=== PATIENT | female | born 1975 | race Caucasian/White ===

== ENCOUNTER → 2018-08-05 | Outpatient (CLI) | payer OTHER ==
[~2018-08-05] MED LIST: ACET500 PO; ALBU90OI INH; ALBU90OI6; ALBU90OI6 INH; ALPR.5; ALPR1; AMIT25 PO; AMIT50; AMIT50 PO; AMIT75; AMIT75 PO; AMOX500 PO; AZIT500 PO; BUSP5 PO; CEPH500; CEPH500 PO; CIME300 PO; CIME400 PO; CIPR250 PO; CIPR500 PO; CITA20; CITA20 PO; CLIN150 PO; CLIN300 PO; CLON.5; CLON.5 PO; CLON1; CLON1 PO; CODACE30; CODACE30 PO; CODACE60 PO; CODGUAPSEE PO; CYCL10 PO; Catapres0.1 MG PO; DOXY100 PO; ESTNOR PO; ESTR.1TPBW TOP; FAMO20 PO; FAMO40 PO; FLUT.05NI; FLUT220OIA IH; HYDACE10B; HYDACE25S PR; HYDACE5 PO; HYDACE7.5; HYDACE7.5 PO; IBUP600 PO; IBUP800 PO; KETO10 PO; LACT10SY PO; LORA1 PO; MECL25 PO; METO10 PO; METO25ER PO; METR500 PO; NAPR250; NAPR500 PO; NAPR550 PO; NITR100CA PO; OMEP20ER PO; ONDA4 PO; OXYACE5T PO; PENVK500 PO; PHENA100 PO; PHENA200 PO; POLY17UD PO; PRED20 PO; PROC5 PO; PROG100 PO; PROM25 PO; PROM25S PR; PROP10 PO; PROP20; RANI150 PO; RXCLIN PO; RXCODACET PO; RXCYCL10 PO; RXHYDACE PO; RXNAPNA550 PO; RXONDA4ODT MM; RXOXYACE PO; RXPROM25 PO; RXPROM25S PR; RXSULTRIDS PO; RXTRAM50 PO; SILSUL1TC TOP; SULTRIDS PO; TRAM50; TRAM50 PO; TRAZ100 PO; TRAZ50 PO; TRIM PO; Ultram50 MG PO; ZOLP10 PO; [UNRECOGNIZED DRUG - OTHER]
== END ==
LOC: LAB 13:22 → LAB SHORT 13:22
DX: R30.0 Dysuria (principal)
CPT/HCPCS: 87077; 87086; 87186

== ENCOUNTER 2018-12-30 07:41 | Day surgery (SDC) | payer OTHER ==
[~2018-12-30] VITALS: Ht 157.5 cm; Wt 64.4 kg
[~2018-12-30 07:41] MED LIST changes: +Flovent Disku100 MCG IH; +IBU800 MG PO; +OMEPRAZOLE MAGN20 MG PO; +SUBOXONE 8 MG-1 EACH SL; +TOPI100 PO; +ZOLP5 PO
--- NOTE | 2018-12-30 08:35 | NUR ---
Ambulatory in Day Surgery History, Chart, Medications and Allergies reviewed before start of procedure.Lungs clear T/O to Auscultation. Patient confirms NPO status and agrees with scheduled surgery. Patient States Post-Procedure ride home has been arranged.
--- NOTE | 2018-12-30 09:34 | NUR ---
12/30/18 0934 Edilson Steelne PATIENT DETERMINED TO BE ASA APPROPRIATE FOR PROPOFOL SEDATION PRIOR TO START OF PROCEDURE BY DR. ANGULO. 3-LEAD EKG REVIEWED WITH PHYSICIAN PRIOR TO START OF PROCEDURE. History, Chart, Medications and Allergies reviewed before start of procedure. MONITOR INTACT WITH CONTINUOUS PULSE OXIMETRY AND INTERMITTENT BP. O2 VIA N/C INTACT THROUGHOUT SEDATION/PROCEDURE, 4 L NC. Bite Block Placed. HURRICAINE SPRAY TO OROPHARYX IMMEDIATELY PREPROCEDURE.
--- NOTE | 2018-12-30 10:26 | NUR ---
Patient up to Ambulate independently. Gait steady. Discharge instructions reviewed with patient. Patient verbalizes understanding. Copy given to patient to take home. Patient States Post-Procedure ride home has been arranged. Discharged via wheelchair to private car for ride home.
== END 2018-12-30 23:04 | disposition home or self-care (01) ==
LOC: ORSCMMR 07:41 → ORD 09:00 → ORSCMMR 23:04
PROVIDERS: Internal Medicine Gastroenterology
PROC: 0DB98ZX Excision of Duodenum, Via Natural or Artificial Opening Endoscopic, Diagnostic (ICD-10-PCS; principal; 2018-12-30 09:00)
PROC: 0DB68ZX Excision of Stomach, Via Natural or Artificial Opening Endoscopic, Diagnostic (ICD-10-PCS; principal; 2018-12-30 09:00)
DX: R10.13 Epigastric pain (principal); Z79.899 Other long term (current) drug therapy
CPT/HCPCS: 88305; 88342; J7120

== ENCOUNTER 2019-02-26 00:38 | Day surgery (SDC) | payer OTHER ==
[~2019-02-26 00:38] MED LIST changes: +BUPRENORPHINE HC8 MG SL; +ONDA4ODT MM
[2019-02-26] MEDS ORDERED: Oyster Shell C500 MG PO (15:08)
[2019-02-26] MEDS ORDERED: ONDA8 PO (15:09)
[2019-02-26] MEDS ORDERED: Nicoderm Cq1 EACH TOP (15:11)
[2019-02-26] MEDS ORDERED: Loratadine10 MG PO (15:17)
[2019-02-26] MEDS ORDERED: Omeprazole20 M1 PO (15:19)
[2019-02-26] MEDS ORDERED: FAMO40 PO (15:25)
[2019-02-26] MEDS ORDERED: Omega-31000 MG PO (15:32)
[2019-02-26] MEDS ORDERED: LORA.5 PO (15:33)
[2019-02-26] MEDS ORDERED: IBUP800 PO (15:33)
[2019-02-26] MEDS ORDERED: Hair, Skin & N1 EACH PO (15:34)
== END 2019-02-26 12:15 | disposition home or self-care (01) ==
LOC: ATC 00:38
DX: C82.08 Follicular lymphoma grade I, lymph nodes of multiple sites (principal); I10 Essential (primary) hypertension; K21.9 Gastro-esophageal reflux disease without esophagitis; F41.9 Anxiety disorder, unspecified; F32.9 Major depressive disorder, single episode, unspecified; Z87.891 Personal history of nicotine dependence; Z79.899 Other long term (current) drug therapy; Z88.8 Allergy status to other drugs, medicaments and biological substances; Z88.2 Allergy status to sulfonamides; Z88.5 Allergy status to narcotic agent
CPT/HCPCS: 36569; C1751

== ENCOUNTER 2019-03-05 00:22 | Day surgery (SDC) | payer OTHER ==
[~2019-03-05 00:22] MED LIST changes: +Hair, Skin & N1 EACH PO; +LORA.5 PO; +Loratadine10 MG PO; +Nicoderm Cq1 EACH TOP; +ONDA8 PO; +Omega-31000 MG PO; +Omeprazole20 M1 PO; +Oyster Shell C500 MG PO
== END 2019-03-05 11:20 | disposition home or self-care (01) ==
LOC: ATC 00:22
DX: C82.08 Follicular lymphoma grade I, lymph nodes of multiple sites (principal); K21.9 Gastro-esophageal reflux disease without esophagitis; I10 Essential (primary) hypertension; Z87.891 Personal history of nicotine dependence; Z88.2 Allergy status to sulfonamides; Z88.5 Allergy status to narcotic agent; Z88.8 Allergy status to other drugs, medicaments and biological substances
CPT/HCPCS: 99211

== ENCOUNTER 2019-03-19 13:12 | Day surgery (SDC) | payer OTHER | END 2019-03-19 14:28 | disposition home or self-care (01) | LOC: ATC 13:12 | DX: C82.08 Follicular lymphoma grade I, lymph nodes of multiple sites (principal); I10 Essential (primary) hypertension; K21.9 Gastro-esophageal reflux disease without esophagitis; Z88.8 Allergy status to other drugs, medicaments and biological substances; Z88.5 Allergy status to narcotic agent | CPT/HCPCS: 99211 ==

== ENCOUNTER 2019-03-26 00:27 | Day surgery (SDC) | payer OTHER | END 2019-03-26 14:59 | disposition home or self-care (01) | LOC: ATC 00:27 | DX: C82.08 Follicular lymphoma grade I, lymph nodes of multiple sites (principal); I10 Essential (primary) hypertension; F41.9 Anxiety disorder, unspecified; F32.9 Major depressive disorder, single episode, unspecified; K21.9 Gastro-esophageal reflux disease without esophagitis; Z87.891 Personal history of nicotine dependence; Z88.8 Allergy status to other drugs, medicaments and biological substances; Z79.899 Other long term (current) drug therapy | CPT/HCPCS: 99211 ==

== ENCOUNTER 2019-04-02 15:55 | Day surgery (SDC) | payer OTHER | END 2019-04-02 16:22 | disposition home or self-care (01) | LOC: ATC 15:55 | DX: Z45.2 Encounter for adjustment and management of vascular access device (principal); C82.08 Follicular lymphoma grade I, lymph nodes of multiple sites; I10 Essential (primary) hypertension; G47.00 Insomnia, unspecified; K21.9 Gastro-esophageal reflux disease without esophagitis; F41.9 Anxiety disorder, unspecified; F32.9 Major depressive disorder, single episode, unspecified; Z79.899 Other long term (current) drug therapy; Z88.8 Allergy status to other drugs, medicaments and biological substances; Z88.5 Allergy status to narcotic agent; Z88.2 Allergy status to sulfonamides | CPT/HCPCS: 99211 ==

== ENCOUNTER 2019-04-09 00:19 | Day surgery (SDC) | payer OTHER | END 2019-04-09 14:30 | disposition home or self-care (01) | LOC: ATC 00:19 | DX: C82.08 Follicular lymphoma grade I, lymph nodes of multiple sites (principal); I10 Essential (primary) hypertension; K21.9 Gastro-esophageal reflux disease without esophagitis; F32.9 Major depressive disorder, single episode, unspecified; F41.9 Anxiety disorder, unspecified; Z79.899 Other long term (current) drug therapy; Z88.8 Allergy status to other drugs, medicaments and biological substances | CPT/HCPCS: 99211 ==

== ENCOUNTER 2019-04-16 00:11 | Day surgery (SDC) | payer OTHER | END 2019-04-16 14:53 | disposition home or self-care (01) | LOC: ATC 00:11 | DX: Z45.2 Encounter for adjustment and management of vascular access device (principal); C82.08 Follicular lymphoma grade I, lymph nodes of multiple sites | CPT/HCPCS: 99211 ==

== ENCOUNTER 2019-05-07 02:56 | Emergency (ER) | payer OTHER ==
[~2019-05-07] VITALS: Ht 157.5 cm; Wt 59.0 kg
[2019-05-07] MEDS ORDERED: NYSTRITC TOP (03:26)
[2019-05-07] MEDS ORDERED: TOPIRAMATE ER200 MG PO (03:51)
== END 2019-05-07 03:59 | disposition home or self-care (01) ==
LOC: ER 02:56
DX: B37.3 Candidiasis of vulva and vagina (principal); F41.9 Anxiety disorder, unspecified; I10 Essential (primary) hypertension; Z87.891 Personal history of nicotine dependence; Z88.2 Allergy status to sulfonamides; Z88.6 Allergy status to analgesic agent; Z88.8 Allergy status to other drugs, medicaments and biological substances
CPT/HCPCS: 99283

== ENCOUNTER → 2020-03-18 | Outpatient (CLI) | payer OTHER ==
[~2020-03-18] MED LIST changes: +NYSTRITC TOP; +TOPIRAMATE ER200 MG PO
[2020-03-19 10:14] LABS: Candida species (DNA Probe) Negative (NEGATIVE); G. vaginalis (DNA Probe) Positive (NEGATIVE); T. vaginalis (DNA Probe) Negative (NEGATIVE)
[2020-03-23 14:09] LABS: HPV 16 Negative (Negative); HPV 18 Negative (Negative); HPV OTHER HR TYPES Negative (Negative)
== END ==
LOC: LAB 18:18 → LAB SHORT 18:18
PROVIDERS: Nurse Practitioner Family
DX: Z12.4 Encounter for screening for malignant neoplasm of cervix (principal); L29.8 Other pruritus
CPT/HCPCS: 87480; 87510; 87660

== ENCOUNTER → 2020-05-28 | Outpatient (CLI) | payer OTHER | LOC: LAB SHORT 09:29 → LAB SRC 09:29 | DX: R35.0 Frequency of micturition (principal) | CPT/HCPCS: 87086 ==

== ENCOUNTER → 2020-06-26 | Outpatient (CLI) | payer OTHER | END | disposition home or self-care (01) | LOC: LAB SHORT 16:30 → LAB EV 16:30 | DX: R10.32 Left lower quadrant pain (principal) | CPT/HCPCS: 83690 ==

== ENCOUNTER 2020-12-11 21:46 | Emergency (ER) | payer OTHER ==
[~2020-12-11] VITALS: Ht 157.5 cm; Wt 69.4 kg
[2020-12-11 22:29] LABS: BASOPHILS ABSOLUTE AUTO 0.03 K/mm3 (0.00-0.23); BASOPHILS PERCENT AUTO 0 % (0-2); EOSINOPHILS ABSOLUTE AUTO 0.21 K/mm3 (0.00-0.68); EOSINOPHILS PERCENT AUTO 2 % (0-6); Hematocrit 40.2 % (33.0-51.0); Hemoglobin 13.4 g/dL (11.5-16.0); IMMATURE GRAN ABSOLUTE AUTO 0.02 K/mm3 (0.00-0.10); IMMATURE GRAN PERCENT AUTO 0 % (0-1); LYMPHOCYTES ABSOLUTE AUTO 1.79 K/mm3 (0.84-5.20); LYMPHOCYTES PERCENT AUTO 18 % (21-46); MONOCYTES ABSOLUTE AUTO 0.81 K/mm3 (0.16-1.47); MONOCYTES PERCENT AUTO 8 % (4-13); Mean Corpuscular HGB 29.8 pg (26.0-34.0); Mean Corpuscular HGB Conc 33.3 g/dL (31.5-36.5); Mean Corpuscular Volume 90 fL (80-100); Mean Platelet Volume 9.2 fL (9.1-12.4); NEUTROPHILS ABSOLUTE AUTO 6.95 K/mm3 (1.96-9.15); NEUTROPHILS PERCENT AUTO 71 % (41-73); Platelet Count 315 K/mm3 (150-400); RDW Standard Deviation 39.5 fL (35.1-46.3); Red Blood Cell Count 4.49 M/mm3 (3.80-5.20); White Blood Cell Count 9.81 K/mm3 (4.00-11.30)
[2020-12-11 22:55] LABS: Alanine Aminotransfer (ALT/SGP 206 U/L (12-78); Albumin, Blood 3.4 g/dL (3.4-5.0); Albumin/Globulin Ratio 0.9 (0.8-1.8); Alk Phos 276 U/L (50-136); Anion Gap 8 mmol/L (6-16); Aspartate Aminotrans (AST/SGOT 123 U/L (12-37); Bilirubin, Total 0.9 mg/dL (0.1-1.0); Blood Urea Nitrogen 14 mg/dL (8-24); CO2, Blood 26 mmol/L (21-32); Chloride, Blood 107 mmol/L (98-108); Creatinine, Blood 0.67 mg/dL (0.40-1.00); Globulin, Blood 3.7 g/dL (2.2-4.0); Glomerular Filtration Rate >60 (60-); Glucose, Blood 112 mg/dL (70-99); Potassium, Blood 3.4 mmol/L (3.5-5.5); Sodium, Blood 141 mmol/L (136-145); Total Protein, Blood 7.1 g/dL (6.4-8.2); Troponin I <0.015 ng/mL (0.000-0.040)
== END 2020-12-12 04:30 | disposition left against medical advice (07) ==
LOC: ER 21:46
PROVIDERS: Physician Assistant
DX: R07.9 Chest pain, unspecified (principal); Z53.21 Procedure and treatment not carried out due to patient leaving prior to being seen by health care provider
CPT/HCPCS: 71046; 80053; 84484; 85025; 93005; 93010; 99283-25

== ENCOUNTER 2021-09-10 17:38 | Emergency (ER) | payer OTHER ==
[~2021-09-10] VITALS: Ht 157.5 cm; Wt 63.5 kg
== END 2021-09-10 20:17 | disposition home or self-care (01) ==
LOC: ER 17:38
DX: F15.23 Other stimulant dependence with withdrawal (principal); G43.909 Migraine, unspecified, not intractable, without status migrainosus; I10 Essential (primary) hypertension; F17.210 Nicotine dependence, cigarettes, uncomplicated; Z88.2 Allergy status to sulfonamides; Z88.5 Allergy status to narcotic agent; Z88.8 Allergy status to other drugs, medicaments and biological substances; Z79.899 Other long term (current) drug therapy
CPT/HCPCS: 99283; A9270

== ENCOUNTER 2021-09-11 09:46 | Emergency (ER) | payer OTHER ==
[~2021-09-11] VITALS: Ht 157.5 cm; Wt 63.5 kg
== END 2021-09-11 10:45 | disposition home or self-care (01) ==
LOC: ER 09:46
DX: Z76.0 Encounter for issue of repeat prescription (principal); F17.210 Nicotine dependence, cigarettes, uncomplicated; I10 Essential (primary) hypertension; Z88.2 Allergy status to sulfonamides; Z88.8 Allergy status to other drugs, medicaments and biological substances; Z79.899 Other long term (current) drug therapy
CPT/HCPCS: 99281; A9270

== ENCOUNTER 2021-09-11 18:42 | Emergency (ER) | payer OTHER ==
[~2021-09-11] VITALS: Ht 157.5 cm; Wt 63.5 kg
== END 2021-09-11 19:10 | disposition home or self-care (01) ==
LOC: ER 18:42
DX: F11.20 Opioid dependence, uncomplicated (principal); I10 Essential (primary) hypertension; F17.210 Nicotine dependence, cigarettes, uncomplicated; Z79.899 Other long term (current) drug therapy; Z88.2 Allergy status to sulfonamides; Z88.5 Allergy status to narcotic agent; Z88.8 Allergy status to other drugs, medicaments and biological substances
CPT/HCPCS: 99281; A9270

== ENCOUNTER 2021-09-12 13:16 | Emergency (ER) | payer OTHER ==
[~2021-09-12] VITALS: Ht 157.5 cm; Wt 63.5 kg
== END 2021-09-12 14:10 | disposition home or self-care (01) ==
LOC: ER 13:16
DX: Z76.0 Encounter for issue of repeat prescription (principal); I10 Essential (primary) hypertension; G43.909 Migraine, unspecified, not intractable, without status migrainosus; F17.210 Nicotine dependence, cigarettes, uncomplicated; Z88.5 Allergy status to narcotic agent; Z88.2 Allergy status to sulfonamides; Z88.8 Allergy status to other drugs, medicaments and biological substances; Z79.899 Other long term (current) drug therapy
CPT/HCPCS: 99283; A9270

== ENCOUNTER 2021-09-12 20:41 | Emergency (ER) | payer OTHER ==
[~2021-09-12] VITALS: Ht 157.5 cm; Wt 63.5 kg
== END 2021-09-12 21:12 | disposition home or self-care (01) ==
LOC: ER 20:41
DX: Z76.0 Encounter for issue of repeat prescription (principal); Z88.2 Allergy status to sulfonamides; Z88.5 Allergy status to narcotic agent; Z79.899 Other long term (current) drug therapy; I10 Essential (primary) hypertension; G43.909 Migraine, unspecified, not intractable, without status migrainosus; Z87.891 Personal history of nicotine dependence
CPT/HCPCS: 99283; A9270

== ENCOUNTER 2021-09-13 12:42 | Emergency (ER) | payer OTHER ==
[~2021-09-13] VITALS: Ht 157.5 cm; Wt 63.5 kg
== END 2021-09-13 13:37 | disposition home or self-care (01) ==
LOC: ER 12:42
DX: Z76.0 Encounter for issue of repeat prescription (principal); I10 Essential (primary) hypertension; G43.909 Migraine, unspecified, not intractable, without status migrainosus; F17.210 Nicotine dependence, cigarettes, uncomplicated; Z88.5 Allergy status to narcotic agent; Z88.2 Allergy status to sulfonamides; Z88.8 Allergy status to other drugs, medicaments and biological substances; Z79.899 Other long term (current) drug therapy
CPT/HCPCS: 99281; A9270

== ENCOUNTER 2021-09-13 21:14 | Emergency (ER) | payer OTHER ==
[~2021-09-13] VITALS: Ht 157.5 cm; Wt 63.5 kg
== END 2021-09-13 23:21 | disposition home or self-care (01) ==
LOC: ER 21:14
DX: Z76.0 Encounter for issue of repeat prescription (principal); G43.909 Migraine, unspecified, not intractable, without status migrainosus; I10 Essential (primary) hypertension; F17.210 Nicotine dependence, cigarettes, uncomplicated; Z88.5 Allergy status to narcotic agent; Z88.2 Allergy status to sulfonamides; Z88.8 Allergy status to other drugs, medicaments and biological substances; Z79.899 Other long term (current) drug therapy
CPT/HCPCS: 99281; A9270

== ENCOUNTER 2022-09-30 08:50 | Emergency (ER) | payer OTHER ==
[~2022-09-30] VITALS: Ht 162.6 cm; Wt 65.8 kg
== END 2022-09-30 09:47 | disposition home or self-care (01) ==
LOC: ER 08:50
DX: S80.02XA Contusion of left knee, initial encounter (principal); W01.0XXA Fall on same level from slipping, tripping and stumbling without subsequent striking against object, initial encounter; I10 Essential (primary) hypertension; F17.210 Nicotine dependence, cigarettes, uncomplicated; Z88.5 Allergy status to narcotic agent; Z88.2 Allergy status to sulfonamides; Z88.8 Allergy status to other drugs, medicaments and biological substances; Z79.899 Other long term (current) drug therapy
CPT/HCPCS: 73562-LT; A9270

== ENCOUNTER → 2022-12-28 | Outpatient (CLI) | payer OTHER | END | disposition home or self-care (01) | LOC: LAB SHORT 08:30 → LAB 08:30 | DX: F11.10 Opioid abuse, uncomplicated (principal); F15.10 Other stimulant abuse, uncomplicated | CPT/HCPCS: G0480 ==

== ENCOUNTER → 2023-09-18 | Outpatient (CLI) | payer OTHER | END | disposition home or self-care (01) | LOC: LAB 17:12 → LAB SHORT 17:12 | DX: R10.9 Unspecified abdominal pain (principal) | CPT/HCPCS: 87077; 87086; 87186 ==

== ENCOUNTER 2024-07-29 21:11 | Emergency (ER) | payer OTHER ==
[~2024-07-29] VITALS: Ht 157.5 cm; Wt 62.6 kg
[2024-07-29 21:49] LABS: BASOPHILS ABSOLUTE AUTO 0.03 K/mm3 (0.00-0.23); BASOPHILS PERCENT AUTO 0 % (0-2); EOSINOPHILS ABSOLUTE AUTO 0.04 K/mm3 (0.00-0.68); EOSINOPHILS PERCENT AUTO 0 % (0-6); Hematocrit 41.3 % (33.0-51.0); Hemoglobin 13.8 g/dL (11.5-16.0); IMMATURE GRAN ABSOLUTE AUTO 0.05 K/mm3 (0.00-0.10); IMMATURE GRAN PERCENT AUTO 0 % (0-1); LYMPHOCYTES ABSOLUTE AUTO 1.74 K/mm3 (0.84-5.20); LYMPHOCYTES PERCENT AUTO 12 % (21-46); MONOCYTES ABSOLUTE AUTO 0.85 K/mm3 (0.16-1.47); MONOCYTES PERCENT AUTO 6 % (4-13); Mean Corpuscular HGB Conc 33.4 g/dL (31.5-36.5); Mean Corpuscular Volume 90 fL (80-100); NEUTROPHILS ABSOLUTE AUTO 11.92 K/mm3 (1.96-9.15); NEUTROPHILS PERCENT AUTO 82 % (41-73); Platelet Count 217 K/mm3 (150-400); RDW Coefficient Variation 12.8 % (11.7-14.2); RDW Standard Deviation 42.1 fL (35.1-46.3); White Blood Cell Count 14.63 K/mm3 (4.00-11.30)
[2024-07-29 21:55] LABS: Source, Urine Voided
[2024-07-29] MEDS ORDERED: Ketorolac Tromethamine 30mg Vial IV ONE (21:55)
[2024-07-29 22:02] LABS: Blood, Urine Neg (Neg); Glucose Qualitative, Urine Neg (Neg); Ketones, Urine Neg (Neg); Leukocyte Esterase, Urine Neg (Neg); Nitrite, Urine Pos (Neg); Protein, Urine 2+ (Neg); Specific Gravity, Urine 1.015 (1.003-1.022); Urobilinogen, Urine 3+ (Normal)
[2024-07-29 22:10] LABS: Albumin, Blood 3.5 g/dL (3.4-5.0); Albumin/Globulin Ratio 1.1 (0.8-1.8); Bun/Creatinine Ratio 13.6 (12.0-20.0); Calcium, Blood 9.1 mg/dL (8.5-10.1); Creatinine, Blood 0.74 mg/dL (0.40-1.00); Globulin, Blood 3.3 g/dL (2.2-4.0); Potassium, Blood 3.9 mmol/L (3.5-5.5); Total Protein, Blood 6.8 g/dL (6.4-8.2)
[2024-07-29 22:13] LABS: Appearance, Urine Clear (Clear); Bilirubin, Urine 3+ (Neg); Color, Urine Orange (P-Yellow)
[2024-07-29 22:14] LABS: Bacteria Rare /hpf; Red Blood Cells, Urine Not Seen /hpf (0-2); Squamous Epithelial Cells Not Seen /hpf (Few)
[2024-07-29] MEDS ORDERED: CefTRIAXone Sodium 1,000 MG in NS 100 ML IV ONE (23:55)
[2024-07-29] MEDS ORDERED: CEFD300 PO (23:55)
[2024-07-29] MEDS ORDERED: Azithromycin 250 MG Tab PO ONE (23:55)
[2024-07-29] MEDS ORDERED: Zithromax250 MG PO (23:55)
[2024-07-30 00:15] VITALS: BP 120/86
== END 2024-07-30 01:04 | disposition home or self-care (01) ==
LOC: ER 21:11
PROVIDERS: Student in an Organized Health Care Education/Training Program
DX: N39.0 Urinary tract infection, site not specified (principal); J18.9 Pneumonia, unspecified organism; I10 Essential (primary) hypertension; C85.90 Non-Hodgkin lymphoma, unspecified, unspecified site; Z88.5 Allergy status to narcotic agent; Z88.8 Allergy status to other drugs, medicaments and biological substances; Z88.2 Allergy status to sulfonamides; Z79.899 Other long term (current) drug therapy; F17.210 Nicotine dependence, cigarettes, uncomplicated
CPT/HCPCS: 74176; 80053; 81001; 83605; 85025; 87077; 87086; 87186; 96365; 96375; 99284-25; A9270; J0696; J1885

== ENCOUNTER 2025-01-30 20:55 | Inpatient (IN) | payer OTHER ==
[~2025-01-30] VITALS: Ht 167.6 cm; Wt 59.2 kg
[~2025-01-30 20:55] MED LIST changes: +CEFD300 PO; +Zithromax250 MG PO
[2025-01-30 21:28] LABS: BASOPHILS ABSOLUTE AUTO 0.05 K/mm3 (0.00-0.23); BASOPHILS PERCENT AUTO 0 % (0-2); EOSINOPHILS PERCENT AUTO 0 % (0-6); Hematocrit 42.2 % (33.0-51.0); Hemoglobin 13.9 g/dL (11.5-16.0); IMMATURE GRAN ABSOLUTE AUTO 0.12 K/mm3 (0.00-0.10); IMMATURE GRAN PERCENT AUTO 1 % (0-1); LYMPHOCYTES ABSOLUTE AUTO 1.46 K/mm3 (0.84-5.20); LYMPHOCYTES PERCENT AUTO 6 % (21-46); MONOCYTES ABSOLUTE AUTO 0.73 K/mm3 (0.16-1.47); MONOCYTES PERCENT AUTO 3 % (4-13); Mean Corpuscular HGB 28.8 pg (26.0-34.0); Mean Corpuscular HGB Conc 32.9 g/dL (31.5-36.5); Mean Corpuscular Volume 88 fL (80-100); Mean Platelet Volume 8.9 fL (9.1-12.4); NEUTROPHILS ABSOLUTE AUTO 21.94 K/mm3 (1.96-9.15); NEUTROPHILS PERCENT AUTO 90 % (41-73); Platelet Count 351 K/mm3 (150-400); RDW Coefficient Variation 12.7 % (11.7-14.2); RDW Standard Deviation 40.6 fL (35.1-46.3); Red Blood Cell Count 4.82 M/mm3 (3.80-5.20)
[2025-01-30 21:43] LABS: Albumin, Blood 3.6 g/dL (3.4-5.0); Albumin/Globulin Ratio 0.9 (0.8-1.8); Bilirubin, Total 1.2 mg/dL (0.1-1.0); Bun/Creatinine Ratio 14.7 (12.0-20.0); Calcium, Blood 9.6 mg/dL (8.5-10.1); Creatinine, Blood 0.75 mg/dL (0.40-1.00); Globulin, Blood 4.2 g/dL (2.2-4.0); Potassium, Blood 4.1 mmol/L (3.5-5.5); Total Protein, Blood 7.8 g/dL (6.4-8.2)
[2025-01-31] MEDS ORDERED: Ketorolac Tromethamine 30mg Vial IV ONE (01:20)
[2025-01-31] MEDS ORDERED: NS 1,000 ML IV SCH ×3 (01:20→09:20)
[2025-01-31] MEDS ORDERED: CefTRIAXone Sodium 1,000 MG in NS 50 ML IV ONE (01:20)
[2025-01-31] MEDS ORDERED: Azithromycin 500 MG in NS 250 ML IV ONE (01:20)
[2025-01-31 01:49] LABS: Source, Urine Clean Catch
[2025-01-31 01:59] LABS: Bilirubin, Urine Neg (Neg); Blood, Urine 1+ (Neg); Glucose Qualitative, Urine Neg (Neg); Ketones, Urine 1+ (Neg); Leukocyte Esterase, Urine Neg (Neg); Nitrite, Urine Neg (Neg); Protein, Urine 2+ (Neg); Urobilinogen, Urine NORM (Normal)
[2025-01-31] MEDS ORDERED: Acetaminophen 325 MG TABLET PO PRN (02:00)
[2025-01-31] MEDS ORDERED: FentaNYL Citrate 50 MCG/ML 2 ML Injection IV PRN ×2 (02:00→06:30)
[2025-01-31] MEDS ORDERED: Ondansetron HCl 2 MG / ML 2ML Vial IV PRN (02:05)
[2025-01-31 02:21] LABS: Appearance, Urine Clear (Clear); Color, Urine Yellow (P-Yellow)
[2025-01-31 02:22] LABS: Bacteria Few /hpf; Red Blood Cells, Urine 0-2 /hpf (0-2); Squamous Epithelial Cells Mod /hpf (Few); White Blood Cells, Urine 0-2 /hpf (0-5)
[2025-01-31 03:05] LABS: Influenza A, PCR NEGATIVE (NEGATIVE); Influenza B, PCR NEGATIVE (NEGATIVE); Resp Syncytial Virus, PCR NEGATIVE (NEGATIVE); SARS-Cov-2 (COVID-19) PCR, MMC NEGATIVE (NEGATIVE)
[2025-01-31] MEDS ORDERED: Ketorolac Tromethamine 15mg Vial IV PRN (03:20)
[2025-01-31] MEDS ORDERED: Magnesium Hydroxide Conc 10 ML UDC PO PRN (03:20)
[2025-01-31 03:37] VITALS: BP 130/90
--- NOTE | 2025-01-31 03:52 | NUR ---
ADMIT NOTE 49 YR OLD FEMALE ADMITTED TO FLOOR FROM THE ED WITH DX OF PNEUMONIA ANS LOW BACK PAIN X 3 DAYS. ALERT AND ORIENTED BUT SLOW TO RESPOND AND SEEMS VERY TIRED. IVF IN FUSING. MED [employer] SR AT 97. LUNG SOUNDS DIMINISHED BUT NO NOTED CONGESTION. ORIENTED TO USE OF CALL LIGHT. CALL LIGHT IN REACH, RAILS UP X 2 AND BED IN LOW POSITION FOR SAFETY. NPO AT THIS TIME
--- NOTE | 2025-01-31 04:17 | NUR ---
MD AT BEDSIDE TO ASSESS PT. ALLOWED SMALL CUP OF WATER TO DRINK. SEE MD NOTATIONS FOR UPDATE
[2025-01-31] MEDS ORDERED: HYDROmorphone HCl/Pf 1MG SYR IV ONE (04:20)
--- NOTE | 2025-01-31 05:34 | NUR ---
CAREER SERVICES OFFICER NATHAN PT ADMITTED TO FLOOR FROM THE ED EARLIER IN THE SHIFT WITH PNEUMONIA AND BACK PAIN. ALERT AND ORIENTED. IVF INFUSING, NPO WITH EXCEPTION OF ONE CUP OF H2O PER MD ORDERS. O2 PER NC. LUNG SOUNDS DIMINISHED PER AUSCULTATION. MD ORDERED ONE TIME IV DILAUDID. MED EFFECTIVE, HAS BEEN RESTING QUIETLY WITH CALL LIGHT IN REACH. RAILS UP X 2 AND BED IN LOW POSITION FOR SAFETY. WILL CONT TO MONITOR.
[2025-01-31] MEDS ORDERED: LORazepam 0.5 MG Tab PO PRN (06:55)
[2025-01-31 07:21] LABS: BASOPHILS ABSOLUTE AUTO 0.04 K/mm3 (0.00-0.23); BASOPHILS PERCENT AUTO 0 % (0-2); EOSINOPHILS PERCENT AUTO 0 % (0-6); Hematocrit 35.1 % (33.0-51.0); Hemoglobin 11.6 g/dL (11.5-16.0); IMMATURE GRAN ABSOLUTE AUTO 0.14 K/mm3 (0.00-0.10); IMMATURE GRAN PERCENT AUTO 1 % (0-1); LYMPHOCYTES PERCENT AUTO 5 % (21-46); MONOCYTES ABSOLUTE AUTO 1.17 K/mm3 (0.16-1.47); MONOCYTES PERCENT AUTO 5 % (4-13); Mean Corpuscular HGB 28.9 pg (26.0-34.0); Mean Corpuscular Volume 88 fL (80-100); Mean Platelet Volume 8.9 fL (9.1-12.4); NEUTROPHILS ABSOLUTE AUTO 21.64 K/mm3 (1.96-9.15); NEUTROPHILS PERCENT AUTO 89 % (41-73); Platelet Count 248 K/mm3 (150-400); RDW Coefficient Variation 12.9 % (11.7-14.2); RDW Standard Deviation 40.9 fL (35.1-46.3); Red Blood Cell Count 4.01 M/mm3 (3.80-5.20); White Blood Cell Count 24.19 K/mm3 (4.00-11.30)
[2025-01-31 07:37] VITALS: BP 127/88
[2025-01-31] MEDS ORDERED: Polyethylene Glycol 3350 17 gm PO PRN (07:50)
[2025-01-31 07:56] LABS: Albumin/Globulin Ratio 0.9 (0.8-1.8); Bun/Creatinine Ratio 16.2 (12.0-20.0); Calcium, Blood 8.7 mg/dL (8.5-10.1); Creatinine, Blood 0.74 mg/dL (0.40-1.00); Globulin, Blood 3.3 g/dL (2.2-4.0); Potassium, Blood 3.9 mmol/L (3.5-5.5); Total Protein, Blood 6.3 g/dL (6.4-8.2)
[2025-01-31] MEDS ORDERED: NS 250 ML IV PRN (08:55)
[2025-01-31] MEDS ORDERED: Sennosides 8.6 MG Tab PO SCH (09:00)
[2025-01-31] MEDS ORDERED: Enoxaparin 40 MG/0.4 ML SYR SC SCH (09:00)
[2025-01-31] MEDS ORDERED: Miconazole Nitrate 2% 85 GM PWD TOP SCH (09:00)
[2025-01-31] MEDS ORDERED: Omeprazole 20 MG CapCR PO SCH (09:00)
[2025-01-31] MEDS ORDERED: Buprenorphine HCL/Naloxone HCL 8MG-2MG Tab SL SCH (09:00)
[2025-01-31 11:18] VITALS: BP 112/75
[2025-01-31] MEDS ORDERED: CLON.5 PO (11:38)
[2025-01-31] MEDS ORDERED: GABA100 PO (11:40)
[2025-01-31] MEDS ORDERED: ALBU90OI INH (11:42)
[2025-01-31] MEDS ORDERED: ClonazePAM 0.5 MG Tab PO PRN (14:05)
[2025-01-31] MEDS ORDERED: Albuterol HFA200 ACT/6.7 GM INH INH SCH (14:20)
[2025-01-31 15:58] VITALS: BP 100/66
[2025-01-31] MEDS ORDERED: Piperacillin/Tazobactam Sod 4.5 GM in NS 100 ML IV SCH (18:00)
[2025-01-31 19:24] VITALS: BP 113/75
--- NOTE | 2025-01-31 19:29 | NUR ---
SUMMARY PATIENT CONTINUED IV MAINTENANCE FLUIDS, IV ANTIBIOTICS CHANGED. SPUTUM CULTURE COLLECTED. PT UP IN SHOWER TODAY. WEANED FROM 2L TO ROOM AIR TODAY. MAINTAINING SATS GREATER THAN 90%. ULTRASOUND OF ABD COMPLETED. STARTED ON REGULAR DIET. TOLERATING FOOD BROUGHT IN BY . TORADOL GIVEN X1 THIS AM FOR PAIN TO ABD WITH REPORTED RELIEF. PATIENT HAS DENIED PAIN SINCE. MED REC ADJUSTED AND DR. JOYNER NOTIFIED.
[2025-01-31] MEDS ORDERED: Azithromycin 500 MG in NS 250 ML IV SCH (21:00)
[2025-01-31] MEDS ORDERED: Gabapentin 100 MG Cap PO SCH (21:00)
[2025-01-31] MEDS ORDERED: CefTRIAXone Sodium 1,000 MG in NS 100 ML IV SCH (21:00)
[2025-01-31] MEDS ORDERED: Albuterol HFA200 ACT/6.7 GM INH INH PRN (21:32)
[2025-01-31] MEDS ORDERED: Albuterol 2.5 MG/3 ML VIAL INH SCH (21:35)
[2025-01-31 23:00] VITALS: BP 121/91
[2025-02-01 03:11] VITALS: BP 128/84
[2025-02-01 05:24] LABS: BASOPHILS ABSOLUTE AUTO 0.03 K/mm3 (0.00-0.23); BASOPHILS PERCENT AUTO 0 % (0-2); EOSINOPHILS ABSOLUTE AUTO 0.15 K/mm3 (0.00-0.68); EOSINOPHILS PERCENT AUTO 1 % (0-6); Hematocrit 31.5 % (33.0-51.0); Hemoglobin 10.4 g/dL (11.5-16.0); IMMATURE GRAN ABSOLUTE AUTO 0.05 K/mm3 (0.00-0.10); IMMATURE GRAN PERCENT AUTO 0 % (0-1); LYMPHOCYTES ABSOLUTE AUTO 2.47 K/mm3 (0.84-5.20); LYMPHOCYTES PERCENT AUTO 18 % (21-46); MONOCYTES ABSOLUTE AUTO 0.87 K/mm3 (0.16-1.47); MONOCYTES PERCENT AUTO 6 % (4-13); Mean Corpuscular Volume 88 fL (80-100); Mean Platelet Volume 9.1 fL (9.1-12.4); NEUTROPHILS PERCENT AUTO 74 % (41-73); Platelet Count 234 K/mm3 (150-400); RDW Coefficient Variation 13.1 % (11.7-14.2); Red Blood Cell Count 3.59 M/mm3 (3.80-5.20); White Blood Cell Count 13.97 K/mm3 (4.00-11.30)
[2025-02-01 06:03] LABS: Bun/Creatinine Ratio 15.2 (12.0-20.0); Calcium, Blood 8.1 mg/dL (8.5-10.1); Creatinine, Blood 0.79 mg/dL (0.40-1.00); Potassium, Blood 3.6 mmol/L (3.5-5.5)
--- NOTE | 2025-02-01 06:34 | NUR ---
SHIFT SUMMARY PT SLEPT INTERMITTENTLY DURING THE NIGHT. PT WITH MILD HEADACHE LAST NIGHT, BUT AWOKE WITH HEADACHE 04/09 THIS AM. TYLENOL AND TORADOL GIVEN PER EMAR WITHOUT RELIEF. ICE PACK PROVIDED TO PT FOR HEADACHE. PT INDEPENDENT IN ROOM. IVF AND ANITBIOTICS CONTINUE PER ORDER. BED IN LOWEST POSITION, CALL LIGHT WITHIN REACH, SIDERAILS UP X2.
[2025-02-01 07:59] VITALS: BP 111/69
[2025-02-01] MEDS ORDERED: Lactobacil 2-S.Thermo-Bifido 1 1 Cap PO SCH (09:00)
[2025-02-01 16:13] VITALS: BP 119/87
[2025-02-01 19:27] VITALS: BP 112/85
--- NOTE | 2025-02-01 19:56 | NUR ---
SUMMARY PT CONTINUE TO HAVE SOME WHEEZING TO LEFT SIDE. HAD A SHOWER TODAY. CONTINUOUS IV FLUIDS, IV ANTIBIOTICS ADMINISTERED Q6. REPEAT CHEST X-RAY ORDERED IN FOR 5/5 IN AM. POTENTIAL DISCHARGE IN AM PER DR. WEBB. NO EVENTS ON TELE.
[2025-02-02 00:45] VITALS: BP 130/89
[2025-02-02 04:48] VITALS: BP 109/71
--- NOTE | 2025-02-02 05:38 | NUR ---
SHIFT SUMMARY; PATIENT SLEPT IN SHORT INTERVALS. AWAKE ON PHONE OFTEN. TELE NSR, DID HAVE EPISODE 130 HR WHILE HAVING BREATHING TREATMENT.STOOL SOFENERS HELD. NS/100ML/HHR
[2025-02-02 07:45] VITALS: BP 141/97
[2025-02-02 08:11] LABS: BASOPHILS ABSOLUTE AUTO 0.02 K/mm3 (0.00-0.23); BASOPHILS PERCENT AUTO 0 % (0-2); EOSINOPHILS PERCENT AUTO 4 % (0-6); Hemoglobin 10.4 g/dL (11.5-16.0); IMMATURE GRAN ABSOLUTE AUTO 0.03 K/mm3 (0.00-0.10); IMMATURE GRAN PERCENT AUTO 0 % (0-1); LYMPHOCYTES ABSOLUTE AUTO 2.24 K/mm3 (0.84-5.20); LYMPHOCYTES PERCENT AUTO 27 % (21-46); MONOCYTES ABSOLUTE AUTO 0.53 K/mm3 (0.16-1.47); MONOCYTES PERCENT AUTO 6 % (4-13); Mean Corpuscular HGB 28.7 pg (26.0-34.0); Mean Corpuscular HGB Conc 32.5 g/dL (31.5-36.5); Mean Corpuscular Volume 88 fL (80-100); Mean Platelet Volume 9.1 fL (9.1-12.4); NEUTROPHILS ABSOLUTE AUTO 5.14 K/mm3 (1.96-9.15); NEUTROPHILS PERCENT AUTO 62 % (41-73); Platelet Count 258 K/mm3 (150-400); RDW Coefficient Variation 12.8 % (11.7-14.2); RDW Standard Deviation 41.6 fL (35.1-46.3); Red Blood Cell Count 3.62 M/mm3 (3.80-5.20); White Blood Cell Count 8.26 K/mm3 (4.00-11.30)
[2025-02-02 08:42] LABS: Bun/Creatinine Ratio 10.8 (12.0-20.0); Calcium, Blood 8.7 mg/dL (8.5-10.1); Creatinine, Blood 0.74 mg/dL (0.40-1.00); Potassium, Blood 3.1 mmol/L (3.5-5.5)
[2025-02-02] MEDS ORDERED: Potassium Chloride 20 MEQ TabCR PO ONE (10:00)
--- NOTE | 2025-02-02 11:21 | NUR ---
Ptt. is in the hallway coloring when she welcomes my visit. After introductions we returned to her room where a life review is facilitated. Pt. displayed evidence of trust and matters of wilton and belief are considered. Pt. verbalized an expectation of discharge today. Normalized the Pt. experience. Prayed with the Pt. Pt. verbalized gratitude for the spiritual care visit.
[2025-02-02] MEDS ORDERED: AMOCLA875 PO (12:03)
--- NOTE | 2025-02-02 14:09 | NUR ---
late entry: discharge note: PT AMBULATED INDEPDNENTLY OUT OF THE HOSPITAL, RN OFFERED A WHEELCHAIR BUT PT DECLINED. SHE WAS ACCOMPANIED BY HER SPOUSE. ALL PERSONAL BELONGINGS RETURNED TO PT. IV REMOVED BY EDU [facility]CO[facility]. PT EDUCATED BY THIS RN TO [employer] [facility] FROM [facility], REPEAT CHEST XRAY IN 6 WEEKS, CALL PCP TO SCHEDULE F/U APPT WITHIN 3 DAYS. PT VERBALIZED UNDERSTANDING. PT TOLERATED DISCHARGE PROCEDURE WELL. MEDS FAXED TO [facility], PER PT PREFERENCE.
== END 2025-02-02 12:44 | disposition home or self-care (01) | DRG 871 ==
LOC: ER 20:55 → ERHOLD 01-31 01:43 → MEDS 01-31 01:43
PROVIDERS: Student in an Organized Health Care Education/Training Program; ADMIT Internal Medicine
DX: A41.9 Sepsis, unspecified organism (principal); J18.9 Pneumonia, unspecified organism; J96.01 Acute respiratory failure with hypoxia; Z16.20 Resistance to unspecified antibiotic; I10 Essential (primary) hypertension; E87.6 Hypokalemia; K21.9 Gastro-esophageal reflux disease without esophagitis; G43.909 Migraine, unspecified, not intractable, without status migrainosus; F32.A Depression, unspecified; F41.9 Anxiety disorder, unspecified; M54.50 Low back pain, unspecified; G89.29 Other chronic pain; Z79.899 Other long term (current) drug therapy; Z88.2 Allergy status to sulfonamides; Z88.5 Allergy status to narcotic agent; Z88.8 Allergy status to other drugs, medicaments and biological substances; Z90.710 Acquired absence of both cervix and uterus; Z90.79 Acquired absence of other genital organ(s); Z90.722 Acquired absence of ovaries, bilateral; Z85.71 Personal history of Hodgkin lymphoma
CPT/HCPCS: 0241U; 36415; 71046; 74177; 76705; 80048; 80053; 81001; 83605; 83690; 83880; 84145; 85025; 87070; 87205; 94640; 94664; 94760; 94762; 99285-25; A9270; J0456; J0696; J1171; J1650; J1885; J2543; J3010; J7030; J7050; Q9967

== ENCOUNTER 2025-07-20 15:00 | Emergency (ER) | payer OTHER ==
[~2025-07-20] VITALS: Ht 157.5 cm; Wt 57.6 kg
[~2025-07-20 15:00] MED LIST changes: +AMOCLA875 PO; +GABA100 PO
[2025-07-20 15:05] VITALS: BP 150/98
== END 2025-07-20 17:30 | disposition left against medical advice (07) ==
LOC: ER 15:00
DX: M25.461 Effusion, right knee (principal); M25.561 Pain in right knee; I10 Essential (primary) hypertension; Z53.29 Procedure and treatment not carried out because of patient's decision for other reasons; Z87.891 Personal history of nicotine dependence; Z88.5 Allergy status to narcotic agent; Z88.2 Allergy status to sulfonamides; Z88.8 Allergy status to other drugs, medicaments and biological substances; Z79.899 Other long term (current) drug therapy
CPT/HCPCS: 73562-RT; 99283-25